=== PATIENT | male | born 1980 | race Hispanic/Latino ===

== ENCOUNTER 2017-11-11 10:11 | Emergency (ER) | payer MEDICAID ==
[2017-11-11 10:15] VITALS: BP 124/76; PULSE 71; TEMP 97; O2SAT 95; BMI 27.8
--- NOTE | 2017-11-11 10:49 | ED PDOC ---
HPI: Psych/Substance Abuse Time Seen by Provider: 11/11/17 10:13 Chief Complaint (Nursing): Substance Abuse Chief Complaint (Provider): Substance Abuse History Per: Patient History/Exam Limitations: no limitations Modifying Factor(s): Other (heroin) Additional Complaint(s): 37 year old male with a past medical history of bipolar, manic depression, and anxiety presents to the emergency department via EMS requesting detox. Patient states that earlier today he injected 2 bags of heroin. He reports that he has been feeling depressed and quotes " my life is a mess" but will not offer additional details or elaborate. Denies SI/HI, auditory and visual hallucinations. Offers no physical complaints. NO PRIMARY CARE PROVIDER Past Medical History Reviewed: Historical Data, Nursing Documentation, Vital Signs Vital Signs: Last Vital Signs Temp 97 F L 11/11/17 10:14 Pulse 71 11/11/17 10:14 Resp BP 124/76 11/11/17 10:14 Pulse Ox 95 11/11/17 10:14 - Medical History PMH: Anxiety, Bipolar Disorder, Depression, Personality Disorder - Surgical History Surgical History: No Surg Hx - Family History Family History: States: Unknown Family Hx - Social History Current smoker - smoking cessation education provided: Yes SMOKER/PACKS PER DAY:: 1 Alcohol: Other (daily) Drugs: Other (heroin) - Home Medications Home Medications: Ambulatory Orders Medication Instructions Recorded FLUoxetine [Prozac] 40 mg PO DAILY #30 cap 08/19/17 Duloxetine HCl [Duloxetine] 60 mg PO DAILY 10/13/17 Furosemide [Lasix] 20 mg PO MDD x 5days 10/13/17 Hydroxyzine HCl 25 mg PO DAILY PRN 10/13/17 predniSONE [predniSONE Tab] 20 mg PO BID 10/13/17 DULoxetine [Cymbalta] 60 mg PO DAILY #14 ecc 10/19/17 Folic Acid 1 mg PO DAILY #30 tab 10/19/17 Gabapentin [Neurontin] 300 mg PO TID #90 cap 10/19/17 Multivitamins [Hexavitamin] 1 tab PO DAILY #30 tab 10/19/17 Thiamine [Vitamin B1 Tab] 100 mg PO DAILY #30 tab 10/19/17 traZODone [Desyrel] 100 mg PO HS PRN #14 tab 10/19/17 DULoxetine [Cymbalta] 60 mg PO DAILY #30 ecc 11/01/17 FLUoxetine [Prozac] 60 mg PO DAILY #30 cap 11/01/17 Gabapentin [Neurontin] 300 mg PO BID #60 cap 11/01/17 traZODone [Desyrel] 50 mg PO HS #30 tab 11/01/17 - Allergies Allergies/Adverse Reactions: Allergies Allergy/AdvReac Type Severity Reaction Status Date / Time Penicillins Allergy RASH Verified 11/11/17 10:17 Review of Systems ROS Statement: Except As Marked, All Systems Reviewed And Found Negative Psych: Positive for: Depression, Other (substance abuse) Physical Exam - Reviewed Nursing Documentation Reviewed: Yes Vital Signs Reviewed: Yes - Physical Exam Comments: GENERAL APPEARANCE: Patient is awake, alert, oriented x 3, in no acute distress. SKIN: Warm, dry; (-) cyanosis EYES: (-) conjunctival pallor, (-) scleral icterus, (-) nystagmus. EOMI and painless. (+) pinpoint pupils ENMT: Mucous membranes moist. Airway patent: (-) stridor. NECK:Supple, FROM HEART AND CARDIOVASCULAR: (-) irregularity; (-) murmur, (-) gallop. CHEST AND RESPIRATORY: (-) rales, (-) rhonchi, (-) wheezes; breath sounds equal bilaterally. Respirations even and nonlabored, speaking in full sentences. ABDOMEN: Soft, (-) distention, (-) tenderness, (-) guarding. NEURO AND PSYCH: Mental status as above. Affect: flat. dentist private practice: Grossly intact. (-) facial asymmetry; tongue and uvula midline. Strength symmetric. Gait steady, speech clear. 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 Patient to be discharged and states that he will go to [facility] immediately. Patient is reliable to follow up as directed. On exam, patient remains AAOx3, in no acute distress. On exam, neck is supple, lungs CTA, cardiac RRR, neuro exam shows no focal findings. VSS, stable for discharge. Diagnostic results d/w the patient in great detail. Dx of substance(heroin) abuse d/w the patient. Based on history, exam and diagnostic results plan will be for discharge. Return to the emergency room at any time for any new or worsening symptoms. Patient states he fully agrees with and understands discharge instructions. States that he agrees with the plan and disposition. Verbalized and repeated discharge instructions and plan. I have given the patient opportunity to ask any additional questions. Disposition - Clinical Impression Clinical Impression: Heroin abuse - Patient ED Disposition Is Patient to be Admitted: No Counseled Patient/Family Regarding: Diagnosis, Need For Followup - Disposition Disposition: Routine/Home Disposition Time: 11:00 Condition: FAIR Additional Instructions: GO TO [facility] IMMEDIATELY THEY HAVE A DETOX BED AVAILABLE FOR YOU. [address], [place] [address] Instructions: Drug Abuse and Drug Addiction (DC), Drug Abuse Treatment Forms: [facility] (Welsh) Print Language: [place] - POA Present On Arrival: None
== END 2017-11-11 11:01 | disposition home or self-care (01) ==
LOC: H.ER 10:11
DX: F11.10 Opioid abuse, uncomplicated (principal)